=== PATIENT | female | born 1970 ===

== ENCOUNTER 2021-01-20 10:36 | Day surgery (SDC) | payer BC ==
[2021-01-16 16:14] VITALS: BMI 22.1
[2021-01-20 07:54] LABS: HEMATOCRIT 39.3 % (32.4-45.2); HEMOGLOBIN 13.6 GM/dL (10.7-15.3); MCH 31.6 pg (25.7-33.7); MCHC 34.6 g/dl (32.0-36.0); MEAN CELL VOLUME 91.5 fl (80-96); MEAN PLT VOLUME 9.3 fl (7.5-11.1); PLATELET COUNT 217 10^3/uL (134-434); RDW 13.5 % (11.6-15.6); WHITE BLOOD COUNT 7.6 K/mm3 (4.0-10.0)
[2021-01-20 08:17] LABS: CHLORIDE 105 mmol/L (98-107); SODIUM 139 mmol/L (136-145)
[2021-01-20 08:18] LABS: CALCIUM 8.8 mg/dL (8.5-10.1); INR 0.93 (0.83-1.09); PROTHROMBIN TIME (PATIENT) 10.4 SEC (9.7-13.0)
[2021-01-20 08:19] LABS: ANION GAP 2 MMOL/L (8-16); BLOOD UREA NITROGEN 11.6 mg/dL (7-18); CO2 31 mmol/L (21-32); GLUCOSE,RANDOM 87 mg/dL (74-106)
[2021-01-20 08:21] LABS: ACTIVATED PTT 29.4 SECONDS (25.2-36.5)
[2021-01-20 08:22] LABS: CREATININE 0.7 mg/dL (0.55-1.3)
[~2021-01-20 10:36] MED LIST: ceFAZolin SODIUM 1 GM VIAL IVPB ONE
[2021-01-20] MEDS ORDERED: oxyCODONE HCL 5 MG TABLET PO PRN (10:56)
[2021-01-20] MEDS ORDERED: ONDANSETRON 4 MG/2 ML VIAL IVPUSH PRN (10:56)
[2021-01-20] MEDS ORDERED: ACETAMINOPHEN 1000 MG/100 ML VIAL IVPB ONE (10:56)
[2021-01-20 12:03] VITALS: BP 134/78; PULSE 56; TEMP 97.5
[2021-01-21] MEDS ORDERED: LEVOTHYROXINE NA 50 MCG TABLET (FP) PO SCH (07:00)
== END 2021-01-20 12:06 | disposition home or self-care (01) ==
LOC: JASU-SURG 10:36
PROVIDERS: ATTEND Obstetrics & Gynecology
PROC: 0UDB7ZX Extraction of Endometrium, Via Natural or Artificial Opening, Diagnostic (ICD-10-PCS; principal; 2021-01-20 09:00)
PROC: 0UJD8ZZ Inspection of Uterus and Cervix, Via Natural or Artificial Opening Endoscopic (ICD-10-PCS; 2021-01-20 09:00)
DX: N95.0 Postmenopausal bleeding (principal)
CPT/HCPCS: 36415; 80048; 84702; 85027; 85610; 85730; 86850; 86900; 86901; 88305-TC; 94760; C9803; U0003; U0005